=== PATIENT | male | born 1945 | race Hispanic/Latino ===

== ENCOUNTER 2017-05-31 15:41 | Inpatient (IN) | payer MEDICARE, MEDICAID ==
[2017-05-31] MEDS ORDERED: Sodium Chloride 0.9% 500 ML IV ONE ×2 (18:09→18:25)
[2017-05-31 18:23] LABS: BASO # 0.1 K/uL (0.0-0.2); BASO % 1.2 % (0.0-2.0); EOS # 0.2 K/uL (0.0-0.7); EOS % 2.1 % (0.0-4.0); HEMATOCRIT 39.9 % (35.0-51.0); LYMPH # 1.9 K/uL (1.0-4.3); LYMPH % 23.9 % (20.0-40.0); MEAN CELL VOLUME 87.1 fL (80.0-94.0); MEAN CORPUSCULAR HEMOGLOBIN 28.9 pg (27.0-31.0); MEAN CORPUSCULAR HGB CONC 33.1 g/dL (33.0-37.0); MEAN PLATELET VOLUME 8.9 fL (7.2-11.7); MONO # 0.8 K/uL (0.0-0.8); MONO % 9.7 % (0.0-10.0); RED CELL DISTRIBUTION WIDTH 14.6 % (11.5-14.5); WHITE BLOOD COUNT 8.1 K/uL (4.8-10.8)
[2017-05-31 18:27] LABS: RBC URINE < 1 /hpf (0-3); URINE BACTERIA RARE (<OCC); URINE BILIRUBIN NEGATIVE (NEGATIVE); URINE BLOOD NEGATIVE (NEGATIVE); URINE COLOR Yellow (YELLOW); URINE GLUCOSE (UA) NORMAL (Normal); URINE KETONE NEGATIVE (NEGATIVE); URINE LEUKOCYTE ESTERASE NEG Leu/uL (Negative); URINE PROTEIN NEGATIVE (NEGATIVE); URINE UROBILINOGEN NORMAL mg/dL (0.2-1.0); WBC URINE 1 /hpf (0-5)
--- NOTE | 2017-05-31 18:28 | C.PDOC ---
History Of Present Illness A 72 year old male, whose past medical history includes cellulitis of the hand/ arm, cocaine usage, asthma, and hypertension, presents to the emergency department for acute dizziness and near syncopal, which began earlier today. The patient states he drinks about 4-5 beers a day and has not drank yet today. He denies any fever, headaches, nausea, chest pain, or any other complaints at this time. Time Seen by Provider: 05/31/17 18:03 Chief Complaint (Nursing): Weakness/Neurological Deficit History Per: Patient History/Exam Limitations: no limitations Onset/Duration Of Symptoms: Hrs (x earlier today ) Current Symptoms Are (Timing): Still Present Associated Symptoms Preceding Syncopal Episode: denies: Vertigo Possible Causative Factor(s): denies: Vertigo Past Medical History Vital Signs: Last Vital Signs Temp 98.8 F 05/31/17 15:54 Pulse 71 05/31/17 15:54 Resp 16 05/31/17 15:54 BP 137/85 05/31/17 15:54 Pulse Ox 96 05/31/17 19:59 - Medical History PMH: Asthma, Fractures (right wrist fracture years ago), HTN Denies: Chronic Kidney Disease Surgical History: Tonsillectomy - [facility] Procedures INSERTION OF INFUSION DEV INTO SUP VENA CAVA, PERC APPROACH (03/06/16) Family History: States: Unknown Family Hx - Social History Hx Tobacco Use: Yes Hx Alcohol Use: Yes (occasional) Hx Substance Use: Yes (infrequently) - Immunization History Hx Tetanus Toxoid Vaccination: Yes Hx Influenza Vaccination: No Hx Pneumococcal Vaccination: No Review Of Systems Except As Marked, All Systems Reviewed And Found Negative. Constitutional: Negative for: Fever Cardiovascular: Negative for: Chest Pain Gastrointestinal: Negative for: Nausea Neurological: Negative for: Headache Physical Exam - Physical Exam Appears: Well, No Acute Distress Skin: Normal Color, Warm, Dry Head: Atraumatic, Normacephalic Eye(s): bilateral: Normal Inspection, PERRL, EOMI Nose: Normal Throat: Normal Neck: Normal Cardiovascular: Rhythm Regular Respiratory: Normal Breath Sounds Gastrointestinal/Abdominal: Normal Exam Back: Normal Inspection Extremity: Normal ROM ED Course And Treatment - Laboratory Results Result Diagrams: 05/31/17 18:18 05/31/17 18:18 ECG: Interpreted By Me, Viewed By Me ECG Rhythm: Sinus Rhythm ECG Interpretation: Normal Rate From EC O2 Sat by Pulse Oximetry: 96 - Radiology CXR: Interpreted by Me, Viewed By Me CXR Interpretation: Yes: No Acute Disease - Other Rad head Ct X-Ray: Read By Radiologist Interpretation: No acute findings Progress Note: 1929: call to PMD Dr. Ibanez- [facility], does not have priviledges @ . 1944: d/w Dr. Odalis Rodríguez- Medicine Armor Officer- ok to Tele obs. NIHSS Stroke Scale - Date/Time Evaluation Performed Date Performed: 05/31/17 Time Performed: 18:00 When Was NIHSS Performed: Baseline - How Severe is the Stoke Level of Consciousness: 0=Alert LOC to Questions: 0=Both comments correct LOC to commands: 0=Obeys both correctly Best Gaze: 0=Normal Visual: 0=No visual loss Facial: 0=Normal Motor Arm - Left: 0=No drift Motor Arm - Right: 0=No drift Motor Leg - Left: 0=No drift Motor Leg - Right: 0=No drift Limb Ataxia: 0=Absent Sensory: 0=Normal Best Language: 0=No aphasia Dysarthia: 0=Normal articulation Extinction & Inattention (Neglect): 0=Normal, no object Score: 0 Severity Of Stroke: 0= No Stroke rTPA Inclusion/Exclusion - Refusal of Treatment Patient Refused Treatment: No - Inclusion Criteria for Altepase Patient is 18 years or Older: Yes The Clinical Diagnosis of Ischemic Stroke That is Causing a Potentially Disabling Neurological Deficit: No Time of Onset is Well Established to be Less Than 270 Minute Before Treatment Would Begin: No Risk/Benefit Discussed With Patient/Family Member Present: No - Exclusion Criteria for Altepase Uncontrolled Hypertension at Time of Treatment (Systolic BP above 185 or Diastolic BP above 110 mmHg): No Known Bleeding Diathesis Including but Not Limited to: Platelets Below 100,000/ mm,PTT Above 40 sec After Heparin Use, Current Use of Oral Anitcoagulant With INR Greater Than 1.7 or PT Greater Than 15 secs: No Evidence of an Intracranial Hemorrhage: No Evidence of Major Acute Infarct With Signs Greater Than 1/3 MCA Territory: No Suspicion of Subarachnoid Hemorrhage on Pretreatment Evaluation Even if CT Head Negative For Hemorrhage: No - Warning to TPA With Conditions Following Conditions Weighed Against Anticipated Benefit: Yes Condition: Stroke Serevity Too Mild Medical Decision Making Medical Decision Making: Plan: -- Head CT -- Chest X-ray -- EKG -- Labs -- IV Fluids -- Urinalysis Progress Notes: brief transient dizziness/disorientation ? related to neuro (cervical/carotid flow), TIA, or dysrhythmia related to pranay or tachy (etoh w/d) pt agrees to overnight tele Obs. Disposition - Disposition Disposition: HOSPITALIZED Disposition Time: 19:41 Condition: GOOD Forms: [facility] (Khmer) - Clinical Impression Clinical Impression: Dizziness - Scribe Statement The provider has reviewed the documentation as recorded by the Scribboo Ramirez All medical record entries made by the Scribe were at my direction and personally dictated by me. I have reviewed the chart and agree that the record accurately reflects my personal performance of the history, physical exam, medical decision making, and the department course for this patient. I have also personally directed, reviewed, and agree with the discharge instructions and disposition.
[2017-05-31 18:32] LABS: CHLORIDE 102 mmol/L (98-107); SODIUM 139 mmol/L (132-148)
[2017-05-31 18:33] LABS: POTASSIUM 3.9 mmol/L (3.6-5.2)
[2017-05-31 18:34] LABS: CARBON DIOXIDE 27 mmol/L (22-30); CHOLESTEROL 168 mg/dL (0-199); GFR AFRICAN-AMERICAN > 60
[2017-05-31 18:35] LABS: ALB/GLOB RATIO 1.2 (1.0-2.1); ALKALINE PHOSPHATASE 85 U/L (38-126); ALT/SGPT 31 U/L (21-72); AST/SGOT 19 U/L (17-59); BILIRUBIN,TOTAL 0.6 mg/dL (0.2-1.3); BLOOD UREA NITROGEN 16 mg/dL (9-20); CALCIUM 9.3 mg/dl (8.6-10.4); GLUCOSE,RANDOM 82 mg/dL (75-110); TOTAL PROTEIN 6.8 g/dL (6.3-8.3)
[2017-05-31 18:36] LABS: ALCOHOL SERUM < 10 mg/dl (0-10)
[2017-05-31 18:42] LABS: INR 1.1
--- NOTE | 2017-05-31 18:52 | CT ---
PROCEDURE: CT HEAD WITHOUT CONTRAST. HISTORY: acute vertigo, now resolved COMPARISON: Noncontrast head CT performed 05/10/13 TECHNIQUE: Axial computed tomography images were obtained through the head/brain without intravenous contrast. Radiation dose: Total exam DLP = 870.64 mGy-cm. This CT exam was performed using one or more of the following dose reduction techniques: Automated exposure control, adjustment of the mA and/or kV according to patient size, and/or use of iterative reconstruction technique. FINDINGS: HEMORRHAGE: No intracranial hemorrhage. BRAIN: Diffuse atrophy with prominence of the ventricles and sulci noted. No mass effect or edema. Scattered periventricular and subcortical white matter hypodensities, which are nonspecific, but often seen with chronic microvascular ischemic disease. Please note that MRI with diffusion imaging is more sensitive in the detection of acute ischemic event. VENTRICLES: No hydrocephalus. CALVARIUM: Unremarkable. PARANASAL SINUSES: Unremarkable as visualized. No significant inflammatory changes. MASTOID AIR CELLS: Unremarkable as visualized. No inflammatory changes. OTHER FINDINGS: None. IMPRESSION: Generalized atrophy. Mild nonspecific white matter changes.
[2017-05-31] MEDS ORDERED: Aspirin 325 mg EC Tablets PO STA (19:36)
--- NOTE | 2017-05-31 19:36 | C.PDOC ---
Time Seen by Provider: 05/31/17 18:03 Chief Complaint (Nursing): Weakness/Neurological Deficit Past Medical History Vital Signs: Last Vital Signs Temp 98.8 F 05/31/17 15:54 Pulse 71 05/31/17 15:54 Resp 16 05/31/17 15:54 BP 137/85 05/31/17 15:54 Pulse Ox 96 05/31/17 15:54 - Medical History PMH: Asthma, Fractures (right wrist fracture years ago), HTN Denies: Chronic Kidney Disease Surgical History: Tonsillectomy - [facility] Procedures INSERTION OF INFUSION DEV INTO SUP VENA CAVA, PERC APPROACH (03/06/16) Family History: States: Unknown Family Hx - Social History Hx Tobacco Use: Yes Hx Alcohol Use: Yes (occasional) Hx Substance Use: Yes (infrequently) - Immunization History Hx Tetanus Toxoid Vaccination: Yes Hx Influenza Vaccination: No Hx Pneumococcal Vaccination: No ED Course And Treatment - Laboratory Results Lab Interpretation: Normal ECG: Interpreted By Fl ECG Rhythm: Sinus Rhythm O2 Sat by Pulse Oximetry: 96 - Radiology CXR: Interpreted by Fl CXR Interpretation: Yes: No Acute Disease - Other Rad head Ct X-Ray: Read By Radiologist (no acute findings.) Reevaluation Time: 19:38 Reassessment Condition: Unchanged (remains asymptomatic) - Physician Consult Information Outcome Of Conversation: 1929: call to PMD Dr. Ibanez- [facility], does not have priviledges @ . 1944: d/w Dr. Odalis Rodríguez- Medicine Slab Conditioner Supervisor- ok to Tele obs. Medical Decision Making Medical Decision Making: brief transient dizziness/disorientation ? related to neuro (cervical/carotid flow), TIA, or dysrhythmia related to pranay or tachy (etoh w/d) pt agrees to overnight tele Obs. Disposition Doctor Will See Patient In The: Hospital Counseled Patient/Family Regarding: Studies Performed, Diagnosis - Disposition Disposition: HOSPITALIZED Disposition Time: 19:41 Condition: GOOD Forms: [facility] (Monegasque) - Clinical Impression Clinical Impression: Dizziness
[2017-05-31] MEDS ORDERED: Aspirin 325 mg EC Tablets PO ONE (19:52)
--- NOTE | 2017-05-31 20:12 | CP.PCM.HP ---
Past Patient History - Past Medical History & Family History Past Medical History?: Yes - Past Social History Smoking Status: Heavy Smoker > 10 Cigarettes Daily - CARDIAC Hx Hypertension: Yes - PULMONARY Hx Asthma: Yes - NEUROLOGICAL Hx Neurological Disorder: No - HEENT Hx HEENT Problems: No - RENAL Hx Chronic Kidney Disease: No - ENDOCRINE/METABOLIC Hx Endocrine Disorders: No - HEMATOLOGICAL/ONCOLOGICAL Hx Blood Disorders: No - INTEGUMENTARY Hx Dermatological Problems: No - MUSCULOSKELETAL/RHEUMATOLOGICAL Hx Fractures: Yes (right wrist fracture years ago) - GASTROINTESTINAL Hx Gastrointestinal Disorders: No - GENITOURINARY/GYNECOLOGICAL Hx Genitourinary Disorders: No - PSYCHIATRIC Hx Substance Use: Yes (infrequently) - SURGICAL HISTORY Hx Tonsillectomy: Yes - ANESTHESIA Hx Anesthesia: Yes (MINOR SURGERY) Hx Anesthesia Reactions: No Meds Allergies/Adverse Reactions: Allergies Allergy/AdvReac Type Severity Reaction Status Date / Time cashew nut Allergy ANAPHYLAXIS Verified 03/06/16 14:33 chocolate flavor Allergy ANAPHYLAXIS Verified 03/06/16 14:33 EGG Allergy ANAPHYLAXIS Verified 03/06/16 14:33 peas Allergy ANAPHYLAXIS Verified 03/06/16 14:33 shellfish derived Allergy ANAPHYLAXIS Verified 05/31/17 16:01 tree nut Allergy ANAPHYLAXIS Verified 05/31/17 16:01 Results - Vital Signs Recent Vital Signs: Last Vital Signs Temp 98.8 F 05/31/17 15:54 Pulse 71 05/31/17 15:54 Resp 16 05/31/17 15:54 BP 137/85 05/31/17 15:54 Pulse Ox 96 05/31/17 20:00 - Labs Result Diagrams: 05/31/17 18:18 05/31/17 18:18
[2017-06-01 01:20] VITALS: RESP 20
--- NOTE | 2017-06-01 09:22 | RAD ---
HISTORY: acute dizzy COMPARISON: 03/06/2016 FINDINGS: LUNGS: The right lower lobe previously referenced infiltrate suggests interval clearance. Residual peribronchial thickening with chronic bronchiectatic changes here are likely. No interval infiltrates suggested PLEURA: No significant pleural effusion identified, no pneumothorax apparent. CARDIOVASCULAR: Top-normal heart size OSSEOUS STRUCTURES: Thoracic spondylosis. Bilateral shoulder arthrosis VISUALIZED UPPER ABDOMEN: Normal. OTHER FINDINGS: None. IMPRESSION: Interval improvement/ clearance of the prior right lower lobe infiltrate. The residual appearance likely represents chronic bronchiectasis here . No interval pathology noted
[2017-06-01] MEDS: Enoxaparin 40 mg Syringe SC SCH (09:32)
[2017-06-01] MEDS: Aspirin 325 mg EC Tablets PO SCH (09:32)
[2017-06-01] MEDS: Pantoprazole 40 mg EC Tab PO SCH (09:32)
--- NOTE | 2017-06-01 16:14 | CP.PCM.PN ---
Subjective - Date & Time of Evaluation Date of Evaluation: 06/01/17 Time of Evaluation: 14:00 - Subjective Subjective: clinically same Objective - Vital Signs/Intake and Output Vital Signs (last 24 hours): Temp Pulse Resp BP Pulse Ox 98.0 F 51 L 20 141/76 97 06/01/17 08:21 06/01/17 08:21 06/01/17 08:21 06/01/17 08:21 06/01/17 08:21 Intake and Output: 06/01/17 06/01/17 06:59 18:59 Intake Total 340 Balance 340 - Medications Medications: Current Medications Aspirin (Ecotrin) 325 mg PO DAILY [facility] Last Admin: 06/01/17 09:32 Dose: 325 mg Enoxaparin Sodium (Lovenox) 40 mg SC DAILY [facility] Last Admin: 06/01/17 09:32 Dose: 40 mg Sodium Chloride (Sodium Chloride 0.9%) 1,000 mls @ 40 mls/hr IV .Q24H [facility] Meclizine HCl (Antivert) 25 mg PO Q8 [facility] Last Admin: 06/01/17 13:24 Dose: 25 mg Pantoprazole Sodium (Protonix Ec Tab) 40 mg PO DAILY [facility] Last Admin: 06/01/17 09:32 Dose: 40 mg Thiamine HCl (Vitamin B1 Tab) 100 mg PO DAILY [facility] Last Admin: 06/01/17 09:32 Dose: 100 mg - Labs Labs: PT 12.7 SECONDS (9.7-12.2) H 05/31/17 18:30 INR 1.1 05/31/17 18:30 APTT 33 SECONDS (21-34) 05/31/17 18:30 - Constitutional Appears: Well - Head Exam Head Exam: ATRAUMATIC, NORMAL INSPECTION, NORMOCEPHALIC - Eye Exam Eye Exam: EOMI, Normal appearance, PERRL Pupil Exam: NORMAL ACCOMODATION, PERRL - ENT Exam ENT Exam: Mucous Membranes Moist, Normal Exam - Neck Exam Neck Exam: Full ROM, Normal Inspection. absent: Lymphadenopathy - Respiratory Exam Respiratory Exam: Decreased Breath Sounds - Cardiovascular Exam Cardiovascular Exam: REGULAR RHYTHM, +S1, +S2 - GI/Abdominal Exam GI & Abdominal Exam: Soft, Diminished Bowel Sounds - Rectal Exam Rectal Exam: Deferred
--- NOTE | 2017-06-01 19:56 | CON ---
HISTORY OF PRESENT ILLNESS: This is a 72-year-old white male with past medical history of asthma, hypertension, and fracture of the right wrist and came here with the complaint of feeling dizzy, near syncopal episode earlier. The patient drinks 4 to 5 beers per day and denies any other complaints. CAT scan of the head was done, which was reported negative, small atrophy. PAST MEDICAL HISTORY: Hypertension and asthma. REVIEW OF SYSTEMS: A 10-point review of system was negative except dizziness. PHYSICAL EXAMINATION: VITAL SIGNS: Blood pressure 137/85. HEENT: Normocephalic and atraumatic. NECK: Supple. NEUROLOGIC: Alert, awake and oriented x3. No aphasia. Cranial nerves II through XII were tested. Pupil reactive. EOM intact. Visual alexander full. No facial asymmetry. Tongue midline. Motor examination, moves all the extremities equally spontaneously. Deep tendon reflexes 1+. Both plantars are downgoing. Sensory appears intact. Cerebellar and gait deferred. LABORATORY DATA: WBC 8.1, hemoglobin 13.2, hematocrit 39.9, platelets 251. Sodium 139, potassium 3.9, chloride 102, CO2 of 27, glucose 82, BUN is 16, creatinine 0.8. IMPRESSION: Vertigo possibly versus syncopal episode and CAT scan of the head was negative. PLAN: Workup in progress. Continue present management. We will followup and give meclizine p.r.n. Elroy Alfaro MD
[2017-06-01] MEDS: Sodium Chloride 0.9% 1,000 ML IV SCH (20:30)
[2017-06-02 08:03] LABS: BASO # 0.1 K/uL (0.0-0.2); BASO % 0.7 % (0.0-2.0); EOS # 0.1 K/uL (0.0-0.7); EOS % 1.8 % (0.0-4.0); HEMATOCRIT 39.6 % (35.0-51.0); LYMPH # 1.6 K/uL (1.0-4.3); MEAN CELL VOLUME 87.2 fL (80.0-94.0); MEAN CORPUSCULAR HEMOGLOBIN 28.9 pg (27.0-31.0); MEAN CORPUSCULAR HGB CONC 33.1 g/dL (33.0-37.0); MEAN PLATELET VOLUME 8.8 fL (7.2-11.7); MONO # 0.7 K/uL (0.0-0.8); MONO % 8.5 % (0.0-10.0); RED CELL DISTRIBUTION WIDTH 14.7 % (11.5-14.5); WHITE BLOOD COUNT 7.8 K/uL (4.8-10.8)
[2017-06-02 08:35] LABS: CHLORIDE 104 mmol/L (98-107); POTASSIUM 4.1 mmol/L (3.6-5.2); SODIUM 139 mmol/L (132-148)
[2017-06-02 08:37] LABS: BILIRUBIN,TOTAL 0.5 mg/dL (0.2-1.3); GFR AFRICAN-AMERICAN > 60
[2017-06-02 08:38] LABS: ALKALINE PHOSPHATASE 80 U/L (38-126); ALT/SGPT 22 U/L (21-72); AST/SGOT 19 U/L (17-59); BLOOD UREA NITROGEN 15 mg/dL (9-20); CARBON DIOXIDE 25 mmol/L (22-30); GLUCOSE,RANDOM 85 mg/dL (75-110); TOTAL PROTEIN 6.4 g/dL (6.3-8.3)
[2017-06-02 08:39] LABS: CALCIUM 8.7 mg/dl (8.6-10.4)
[2017-06-02] MEDS: Aspirin 325 mg EC Tablets PO SCH (09:25)
[2017-06-02] MEDS: Pantoprazole 40 mg EC Tab PO SCH (09:25)
[2017-06-02] MEDS: Enoxaparin 40 mg Syringe SC SCH (09:25)
--- NOTE | 2017-06-02 11:44 | CARD ---
APPROVED REPORT EKG Measurement Heart [id number] <Conclusion> Normal sinus rhythm Right bundle branch block Abnormal ECG
--- NOTE | 2017-06-02 18:28 | CP.PCM.PN ---
Subjective - Date & Time of Evaluation Date of Evaluation: 06/02/17 Time of Evaluation: 12:40 - Subjective Subjective: clincally same Objective - Vital Signs/Intake and Output Vital Signs (last 24 hours): Temp Pulse Resp BP Pulse Ox 98.4 F 57 L 20 137/76 97 06/02/17 16:00 06/02/17 16:00 06/02/17 16:00 06/02/17 16:00 06/02/17 16:00 - Medications Medications: Current Medications Aspirin (Ecotrin) 325 mg PO DAILY [facility] Last Admin: 06/02/17 09:25 Dose: 325 mg Enoxaparin Sodium (Lovenox) 40 mg SC DAILY [facility] Last Admin: 06/02/17 09:25 Dose: 40 mg Sodium Chloride (Sodium Chloride 0.9%) 1,000 mls @ 40 mls/hr IV .Q24H [facility] Last Admin: 06/01/17 20:30 Dose: 40 mls/hr Meclizine HCl (Antivert) 25 mg PO Q8 [facility] Last Admin: 06/02/17 13:07 Dose: 25 mg Pantoprazole Sodium (Protonix Ec Tab) 40 mg PO DAILY [facility] Last Admin: 06/02/17 09:25 Dose: 40 mg Rosuvastatin Calcium (Crestor) 5 mg PO HS [facility] Thiamine HCl (Vitamin B1 Tab) 100 mg PO DAILY [facility] Last Admin: 06/02/17 09:25 Dose: 100 mg - Labs Labs: PT 12.7 SECONDS (9.7-12.2) H 05/31/17 18:30 INR 1.1 05/31/17 18:30 APTT 33 SECONDS (21-34) 05/31/17 18:30 - Constitutional Appears: Well - Head Exam Head Exam: ATRAUMATIC, NORMAL INSPECTION, NORMOCEPHALIC - Eye Exam Eye Exam: EOMI, Normal appearance, PERRL Pupil Exam: NORMAL ACCOMODATION, PERRL - ENT Exam ENT Exam: Mucous Membranes Moist, Normal Exam - Neck Exam Neck Exam: Full ROM, Normal Inspection. absent: Lymphadenopathy - Respiratory Exam Respiratory Exam: Decreased Breath Sounds - Cardiovascular Exam Cardiovascular Exam: REGULAR RHYTHM, +S1, +S2 - GI/Abdominal Exam GI & Abdominal Exam: Soft, Diminished Bowel Sounds - Rectal Exam Rectal Exam: Deferred
[2017-06-03] MEDS: Sodium Chloride 0.9% 1,000 ML IV SCH (06:05)
[2017-06-03 08:07] VITALS: BP 136/82; TEMP 98.5; O2SAT 94
[2017-06-03 08:19] VITALS: PULSE 56
[2017-06-03] MEDS: Pantoprazole 40 mg EC Tab PO SCH (09:34)
[2017-06-03] MEDS: Aspirin 325 mg EC Tablets PO SCH (09:34)
[2017-06-03] MEDS: Enoxaparin 40 mg Syringe SC SCH (09:34)
--- NOTE | 2017-06-03 17:57 | CP.PCM.PN ---
Subjective - Date & Time of Evaluation Date of Evaluation: 06/03/17 Time of Evaluation: 11:00 - Subjective Subjective: PT SEEN AND EXAMINED TODAY, PT DENIES ANY CHEST PAIN, SOB, DIZZINESS, PALPITATION, RESP EASY AND UNLABORED. NAD. Objective - Vital Signs/Intake and Output Vital Signs (last 24 hours): Temp Pulse Resp BP Pulse Ox 98.5 F 56 L 20 136/82 94 L 06/03/17 08:07 06/03/17 08:16 06/03/17 08:07 06/03/17 08:07 06/03/17 08:07 Intake and Output: 06/03/17 06/03/17 06:59 18:59 Intake Total 420 Balance 420 - Labs Labs: PT 12.7 SECONDS (9.7-12.2) H 05/31/17 18:30 INR 1.1 05/31/17 18:30 APTT 33 SECONDS (21-34) 05/31/17 18:30 Assessment and Plan - Assessment and Plan (Free Text) Plan: 72 Y/O MALE WITH PMHX COCCAINE USE, CELLULITIS, HTN, ADMITTED FOR DIZZINESS PT AAOX3, NO SLURRED SPEECH, NO WEAKNESS, NO NEURO DEFICIT CT HEAD NEGATIVE FOR ANY BLEED OR INFARCT PT SEEN BY NEUROLOGY DR MIDDLETON, CLEARED FOR D/C RX FOR ASA, PLAVIX PER DR SMITH F/U W/PMD AND DR MIDDLETON RETURN TO ER IF ANY WORSENING S/S, AGREE, VERBALIZE UNDERSTANDING
== END 2017-06-03 14:59 | disposition home or self-care (01) | DRG 312 ==
LOC: C.ER 15:41 → C.9E 19:42 → C.6T 22:47 → OBSVTOIN 06-02 17:34
PROVIDERS: ADMIT Internal Medicine Nephrology; ATTEND Internal Medicine Nephrology
DX: R55 Syncope and collapse (principal); I10 Essential (primary) hypertension; J45.909 Unspecified asthma, uncomplicated; F17.210 Nicotine dependence, cigarettes, uncomplicated; R42 Dizziness and giddiness

== ENCOUNTER 2017-11-01 12:49 | Emergency (ER) | payer MEDICARE, MEDICAID ==
[2017-11-01 13:58] VITALS: TEMP 97.4; O2SAT 96
[2017-11-01] MEDS ORDERED: Sodium Chloride 0.9% 500 ML IV ONE (14:24)
[2017-11-01] MEDS ORDERED: DiphenhydrAMINE 50 mg/ml Inj IVP STA (14:25)
[2017-11-01 14:47] LABS: HEMOGLOBIN 13.6 g/dL (12.0-18.0); MEAN CELL VOLUME 90.3 fL (80.0-94.0); RBC 4.54 Mil/uL (4.40-5.90); WHITE BLOOD COUNT 8.3 K/uL (4.8-10.8)
[2017-11-01 14:48] LABS: BASO # 0.1 K/uL (0.0-0.2); BASO % 1.4 % (0.0-2.0); EOS # 0.2 K/uL (0.0-0.7); EOS % 2.8 % (0.0-4.0); LYMPH # 1.7 K/uL (1.0-4.3); MEAN CORPUSCULAR HGB CONC 33.3 g/dL (33.0-37.0); MEAN PLATELET VOLUME 8.3 fL (7.2-11.7); MONO # 0.7 K/uL (0.0-0.8); MONO % 8.5 % (0.0-10.0); NEUT # 5.6 K/uL (1.8-7.0); NEUT % 67.3 % (50.0-75.0); RED CELL DISTRIBUTION WIDTH 14.3 % (11.5-14.5)
[2017-11-01] MEDS ORDERED: DiphenhydrAMINE 50 mg/ml Inj ONE (14:51)
[2017-11-01] MEDS ORDERED: Sodium Chloride 0.9% 1,000 ML ONE (14:52)
[2017-11-01 15:02] LABS: BLOOD UREA NITROGEN 15 mg/dL (9-20); GFR AFRICAN-AMERICAN > 60; GFR NON-AFRICAN AMERICAN > 60
--- NOTE | 2017-11-01 15:29 | C.PDOC ---
History Of Present Illness 72 yo male come in for evaluation of gradual worsening of generalized pruritic rash developed for past few days. Pt admits, previous hx allergy to multiple food, although denies any known exposure to allergen. Pt denies recent travel or known sick contact. Denies fever, chills, headache, dizziness, neck pain or swelling, throat tightness or swelling, CP, SOB, dyspnea, diaphoresis, palpitation, wheezing, abd. pain, N/V/D, denies any other active complaints. Ambulate to Ed for evaluation, not in any apparent distress. Time Seen by Provider: 11/01/17 14:19 Chief Complaint (Nursing): Abnormal Skin Integrity History Per: Patient Past Medical History Reviewed: Historical Data, Nursing Documentation, Vital Signs Vital Signs: Last Vital Signs Temp 97.4 F L 11/01/17 13:54 Pulse 72 11/01/17 13:54 Resp 20 11/01/17 13:54 BP 158/79 H 11/01/17 13:54 Pulse Ox 96 11/01/17 13:54 - Medical History PMH: Asthma, Fractures (right wrist fracture years ago), HTN Denies: Chronic Kidney Disease Surgical History: Tonsillectomy - [facility] Procedures INSERTION OF INFUSION DEV INTO SUP VENA CAVA, PERC APPROACH (03/06/16) Family History: States: Unknown Family Hx - Social History Hx Tobacco Use: Yes Hx Alcohol Use: Yes Hx Substance Use: Yes (infrequently) - Immunization History Hx Tetanus Toxoid Vaccination: Yes Hx Influenza Vaccination: No Hx Pneumococcal Vaccination: No Review Of Systems Except As Marked, All Systems Reviewed And Found Negative. Constitutional: Negative for: Fever, Chills ENT: Negative for: Ear Discharge, Nose Discharge, Mouth Swelling, Throat Pain, Throat Swelling Cardiovascular: Negative for: Chest Pain, Palpitations Respiratory: Negative for: Shortness of Breath, Wheezing Gastrointestinal: Negative for: Nausea, Vomiting, Abdominal Pain, Diarrhea Skin: Positive for: Rash Neurological: Negative for: Weakness, Numbness, Altered Mental Status, Headache , Dizziness Physical Exam - Physical Exam Appears: Well, Non-toxic, No Acute Distress Skin: Normal Color, Warm, Dry, Rash (diffuse urticaria to trunk, B/L ues and LEs. No edema, no cellulitis.) Eye(s): bilateral: PERRL Nose: No Flaring, No Discharge Oral Mucosa: Moist, No Drooling Tongue: No Swelling Lips: No Swelling Throat: No Drooling, Other (Uvula midline, no edema.) Neck: Supple Cardiovascular: Rhythm Regular, No Murmur, No JVD Respiratory: No Decreased Breath Sounds, No Accessory Muscle Use, No Stridor, No Wheezing Gastrointestinal/Abdominal: Soft, No Tenderness Extremity: Normal ROM, No Pedal Edema, No Deformity Neurological/Psych: Oriented x3, Normal Speech ED Course And Treatment - Laboratory Results Result Diagrams: 11/01/17 14:44 11/01/17 14:44 Lab Interpretation: Normal O2 Sat by Pulse Oximetry: 96 Pulse Ox Interpretation: Normal Progress Note: On re-eval, pt is afebrile, hemodynamicaly stable. NOn-toxic. PulseOx 96% RA. ENT: no acute findings. Uvula midline, no edmea. Neck: SUpple , (-) JVD, (-) carotid bruits B/L. Lungs: CTA B/L, BS equal B/L. Abd: benign. SKin: exam c/w diffuse urticaria, no cellulitis. Pt advised and ref. to F/U with PMD, Lawn Sprinkler Installer In 2-3 days for re-eval. return if any new changes. Disposition Counseled Patient/Family Regarding: Studies Performed, Diagnosis, Need For Followup, Rx Given - Disposition Referrals: [facility] [Outside] Disposition: HOME/ ROUTINE Disposition Time: 15:29 Condition: STABLE Additional Instructions: AVOID FOOD WITH KNOWN ALLERGY TO TAKE MEDICATION PRESCRIBED FOLLOWUP WITH SURVEYING [employer]W [employer]ODMAN , PMD IN 2-3 DAYS FOR RE-EVALUATION. RETURN TO ED IF ANY WORSENING OR NEW CHANGES. Prescriptions: DiphenhydrAMINE [Benadryl] 25 mg PO BID #10 cap Famotidine [Pepcid] 20 mg PO BID #10 tab predniSONE [predniSONE Tab] 60 mg PO DAILY #9 tab Instructions: Urticaria (ED) - Clinical Impression Clinical Impression: Urticaria
[2017-11-01 16:02] VITALS: BP 181/96; PULSE 62; RESP 18
== END 2017-11-01 16:02 | disposition home or self-care (01) ==
LOC: C.ER 12:49
DX: L50.9 Urticaria, unspecified (principal); I10 Essential (primary) hypertension
CPT/HCPCS: 80048; 85025; 96361; 96374; 96375; 99283; J1200; J2930; J7040

== ENCOUNTER 2017-11-08 10:52 | Emergency (ER) | payer MEDICARE, MEDICAID ==
[2017-11-08 11:21] VITALS: O2SAT 97
--- NOTE | 2017-11-08 12:13 | C.PDOC ---
History Of Present Illness 72 yo male come in for evaluation of generalized pruritic rash that has been present for past few days. Patient was seen in ED 3 days ago and states he is taking medications benadryl and prednisone without relief. He states they did not give any creams and wants cream to apply. Denies fever, chills, headache, neck pain or swelling, throat tightness or swelling, CP, SOB, dyspnea, diaphoresis, palpitation, wheezing, abd. pain, N/V/D, denies any other active complaints. Ambulate to Ed for evaluation, not in any apparent distress. Time Seen by Provider: 11/08/17 11:59 Chief Complaint (Nursing): Abnormal Skin Integrity History Per: Patient History/Exam Limitations: no limitations Onset/Duration Of Symptoms: Days Current Symptoms Are (Timing): Still Present Past Medical History Reviewed: Historical Data, Nursing Documentation, Vital Signs Vital Signs: Last Vital Signs Temp 98.6 F 11/08/17 12:42 Pulse 68 11/08/17 12:42 Resp 20 11/08/17 12:42 BP 165/89 H 11/08/17 12:42 Pulse Ox 97 11/08/17 12:42 - Medical History PMH: Asthma, Fractures (right wrist fracture years ago), HTN (No Meds) Surgical History: Tonsillectomy - [facility] Procedures INSERTION OF INFUSION DEV INTO SUP VENA CAVA, PERC APPROACH (03/06/16) Family History: States: No Known Family Hx - Social History Hx Tobacco Use: Yes Hx Alcohol Use: Yes Hx Substance Use: No - Immunization History Hx Tetanus Toxoid Vaccination: Yes Hx Influenza Vaccination: No Hx Pneumococcal Vaccination: No Review Of Systems Constitutional: Negative for: Fever, Chills Cardiovascular: Negative for: Chest Pain, Palpitations Respiratory: Negative for: Shortness of Breath, Wheezing Gastrointestinal: Negative for: Nausea, Vomiting Skin: Positive for: Rash Physical Exam - Physical Exam Appears: Non-toxic, No Acute Distress Skin: Warm, Dry, Rash (diffuse urticaria to trunk, back and extremities. Scaly patches to back, Mild excoriations. No edema, No celulitis) Head: Atraumatic, Normacephalic Eye(s): bilateral: Normal Inspection Nose: Normal, No Flaring Oral Mucosa: Moist Tongue: Normal Appearing, No Swelling Lips: Normal Appearing, No Swelling Throat: Normal, No Erythema, No Exudate, No Drooling, No Mass Neck: Supple Cardiovascular: Rhythm Regular Respiratory: Normal Breath Sounds, No Rales, No Rhonchi, No Wheezing Gastrointestinal/Abdominal: Soft, No Tenderness, No Guarding, No Rebound Extremity: Bilateral: Atraumatic Neurological/Psych: Oriented x3 ED Course And Treatment O2 Sat by Pulse Oximetry: 97 (RA) Pulse Ox Interpretation: Normal Medical Decision Making Medical Decision Making: Patient with itchy rash diffusely to body, excluding face. Patient seen in ED few days ago and had labwork done and treated with IV meds. Patient continues to complain of itch. Skin still shows rash dryness and scaling. No signs of cellulitis or respiratory distress. Lungs clear and intraoral area clear, no swelling or stridor. Explain to patient symptoms will take time to resolve maybe one week. Will prescribe cream and lotion to use. Advise follow up in the clinic. Disposition Counseled Patient/Family Regarding: Diagnosis, Need For Followup, Rx Given - Disposition Referrals: Anjali Bruner MD [Staff Provider] - Disposition: HOME/ ROUTINE Disposition Time: 12:17 Condition: STABLE Additional Instructions: apply ointments to affected areas try taking oatmeal bath to help soothe skin and help with itching Take Hyrdoxyzine 1-2 tabs every 4-6 hours as needed for itching Follow up in the clinic to see fiscal economist Prescriptions: Betamethasone Dip 0.05% [Diprolene] 45 applic TOP BID #1 tube Hydroxyzine HCl 25 mg PO Q6 PRN #50 tablet PRN Reason: Itching / Pruritus Mineral Oil/Hydrophil Petrolat [Aquaphor Healing Ointment] 50 gm TP BID #1 oint...g. Instructions: Contact Dermatitis (ED) Forms: [employer] (Ugandan) - POA Present On Arrival: None - Clinical Impression Clinical Impression: Allergic contact dermatitis - PA / WEB MASTER / Resident Statement MD/DO has reviewed & agrees with the documentation as recorded. - Scribe Statement The provider has reviewed the documentation as recorded by the Davidibboo Jenkins All medical record entries made by the Scribboo were at my direction and personally dictated by me. I have reviewed the chart and agree that the record accurately reflects my personal performance of the history, physical exam, medical decision making, and the department course for this patient. I have also personally directed, reviewed, and agree with the discharge instructions and disposition.
[2017-11-08 12:43] VITALS: BP 165/89; PULSE 68; RESP 20; TEMP 98.6
== END 2017-11-08 12:44 | disposition home or self-care (01) ==
LOC: C.ER 10:52
DX: L23.9 Allergic contact dermatitis, unspecified cause (principal)